=== PATIENT | female | born 1995 | race African-American/Black ===

== ENCOUNTER 2022-08-27 01:13 | Emergency (ER) | payer OTHER ==
[~2022-08-27] VITALS: Ht 177.8 cm; Wt 75.0 kg
[2022-08-27 02:30] VITALS: BP 124/64
[2022-08-27] MEDS ORDERED: BACITRACIN 0.9 GM PACKET OINTMENT TP ONE (02:56)
[2022-08-27] MEDS ORDERED: AMOX TR/POT CLAV 875 MG/125 MG TABLET PO ONE (03:00)
[2022-08-27] MEDS ORDERED: KETOROLAC TROMETHAMINE 60 MG/2 ML VIAL IM ONE (03:00)
[2022-08-27] MEDS ORDERED: PERTUSS(ACELL),DIPH,TET VAC/PF 0.5 ML SYRINGE IM. ONE (03:00)
[2022-08-27] MEDS ORDERED: ACETAMINOPHEN 500 MG TABLET PO ONE (03:00)
[2022-08-27] MEDS ORDERED: IBUP-1554 PO (03:03)
[2022-08-27] MEDS ORDERED: AMOX1TAB16 PO (03:03)
== END 2022-08-27 03:18 | disposition home or self-care (01) ==
LOC: EMS 01:15
DX: S61.052A Open bite of left thumb without damage to nail, initial encounter (principal); S00.531A Contusion of lip, initial encounter; S60.011A Contusion of right thumb without damage to nail, initial encounter; Y04.1XXA Assault by human bite, initial encounter; Y93.89 Activity, other specified; Y92.89 Other specified places as the place of occurrence of the external cause; Y99.8 Other external cause status
CPT/HCPCS: 99284; 73130; 90715; 90471; 96372; J1885